=== PATIENT | female | born 1995 | race Caucasian/White ===

== ENCOUNTER 2017-05-01 17:52 | Emergency (ER) | payer OTHER ==
[2017-05-01 17:59] VITALS: BMI 24.8
[2017-05-01 18:03] VITALS: BP 101/67; PULSE 78; RESP 18; TEMP 98.6
[2017-05-01] MEDS ORDERED: Neomycin/Polymyxin/Hydrocort Otic Soln BOTTLE AD STA (18:39)
--- NOTE | 2017-05-01 18:45 | ED PDOC ---
Arrival/HPI - General Chief Complaint: ENT Problem Time Seen by Provider: 05/01/17 17:53 Historian: Patient - History of Present Illness Narrative History of Present Illness (Text): 05/01/17 19:15 22 yo F c/o 3 day h/o L ear pain, has been applying otc swimmer's ear drops with no improvement. States that she was recently scuba diving 5 days ago. Denies fever, chills, headache, trauma, tinnitus, decrease in hearing, sore throat, URI symptoms, or rash. Has no other complaints. PMD Craig Past Medical History - Provider Review Nursing Documentation Reviewed: Yes - Infectious Disease Hx of Infectious Diseases: None - Cardiac Hx Cardiac Disorders: Yes Other/Comment: heart mumur - Pulmonary Hx Respiratory Disorders: No - Neurological Hx Neurological Disorder: No - HEENT Hx HEENT Disorder: Yes Other/Comment: L ear infections in the past - Renal Hx Renal Disorder: No - Endocrine/Metabolic Hx Endocrine Disorders: No - Hematological/Oncological Hx Blood Disorders: No - Integumentary Hx Dermatological Disorder: No - Musculoskeletal/Rheumatological Hx Musculoskeletal Disorders: No - Gastrointestinal Hx Gastrointestinal Disorders: No - Genitourinary/Gynecological Hx Genitourinary Disorders: No - Psychiatric Hx Psychophysiologic Disorder: No Hx Substance Use: No - Anesthesia Hx Anesthesia: No Family/Social History - Physician Review Nursing Documentation Reviewed: Yes Family/Social History: No Known Family HX Smoking Status: Never Smoked Hx Alcohol Use: No Hx Substance Use: No Allergies/Home Meds Allergies/Adverse Reactions: Allergies No Known Allergies Allergy (Verified 05/01/17 17:59) Home Medications: Home Meds Medication Instructions Recorded Confirmed No Known Home Med 05/01/17 05/01/17 Review of Systems - Review of Systems Constitutional: Normal. absent: Fatigue, Weight Change, Fevers ENT: Normal, Other (ear pain). absent: Hearing Changes, Tinnitus, TMJ Pain Respiratory: Normal. absent: SOB, Cough, Sputum Musculoskeletal: Normal. absent: Arthralgias, Back Pain, Neck Pain Skin: Normal. absent: Rash, Pruritis, Skin Lesions Physical Exam Vital Signs Reviewed: Yes Vital Signs Temp Pulse Resp BP Pulse Ox 05/01/17 18:51 18 99 05/01/17 18:02 98.6 F 78 18 101/67 98 Temperature: Afebrile Blood Pressure: Normal Pulse: Regular Respiratory Rate: Normal Appearance: Positive for: Well-Appearing, Non-Toxic, Comfortable Pain Distress: None Mental Status: Positive for: Alert and Oriented X 3 - Systems Exam Head: Present: Atraumatic, Normocephalic Pupils: Present: PERRL Extroacular Muscles: Present: EOMI Conjunctiva: Present: Normal. No: Injected Ears: Present: NORMAL TM, Other (L ear: (+) pain elicited with palpation of the tragus, (+) edema, exudate to the ear canal, TM is wnl with (-) erythema). No: TM Bulging, TM Perf Medical Decision Making ED Course and Treatment: 05/01/17 19:20 22 yo F c/o 3 day h/o L ear pain, has been applying otc swimmer's ear drops with no improvement. Based on history and exam, pt is noted to have otitis externa. Cortisporin ear drops instilled into the pt's L ear. Cortisporin ear drop bottle provided to the pt. Pt advised to continue the ear drops as instructed for the next week and to f/u with pmd in 2 days for re-evaluation, instructed to return to the ER at any time for any new or worsening symptoms. - Medication Orders Current Medication Orders: Discontinued Medications Neomycin/Polymyxin/Hydrocortisone (Cortisporin Otic Soln) 4 drop STAT STA Stop: 05/01/17 18:47 Last Admin: 05/01/17 18:51 Dose: 4 drop - PA / PASSENGER ATTENDANT / Resident Statement MD/DO has reviewed & agrees with the documentation as recorded. Disposition/Present on Arrival - Present on Arrival Any Indicators Present on Arrival: No History of DVT/PE: No History of Uncontrolled Diabetes: No Urinary Catheter: No History of Decub. Ulcer: No History Surgical Site Infection Following: None - Disposition Have Diagnosis and Disposition been Completed?: Yes Diagnosis: Otitis externa Disposition: HOME/ ROUTINE Disposition Time: 18:30 Patient Plan: Discharge Condition: STABLE Discharge Instructions (ExitCare): Otitis Externa (ED) Print Language: PERSIAN Additional Instructions: Follow up with pmd in 1-2 days without fail. Continue antibiotic ear drops - 4 drops to the L ear every 6 hours for 1 week. Return to the ER at any time for any new or worsening symptoms. Referrals: Milla oRsales MD [Primary Care Provider] - Follow up with primary Forms: WORK NOTE
[2017-05-01] MEDS ORDERED: Neomycin/Polymyxin/Hydrocort Otic Soln BOTTLE AS STA (18:46)
[2017-05-01 18:52] VITALS: O2SAT 99
== END 2017-05-01 18:52 | disposition home or self-care (01) ==
LOC: ED 17:52
DX: H60.92 Unspecified otitis externa, left ear (principal)